=== PATIENT | male | born 1990 | race Caucasian/White ===

== ENCOUNTER 2016-06-16 01:16 | Emergency (ER) | payer MEDICAID, OTHER ==
[~2016-06-16] VITALS: Ht 188 cm; Wt 104.2 kg
[~2016-06-16 01:16] MED LIST: CLON-412 PO; OMEP20CA9 PO
[2016-06-16 01:21] VITALS: Ht 188 cm; Wt 104.2 kg
[2016-06-16] MEDS ORDERED: ELIM TOP (03:29)
[2016-06-16] MEDS ORDERED: HYDR-3011 PO (03:29)
[2016-06-16] MEDS ORDERED: TRAM50TA2 PO (03:29)
[2016-06-16 04:00] VITALS: BP 120/86; PULSE 86; RESP 20; TEMP 98.6
--- NOTE | 2016-06-16 04:29 | ERD ---
ER Documentation Chief Complaint Date/Time DATE: 06/16/16 TIME: 04:25 Chief Complaint rash, back pain and panic attacks HPI 26-year-old male presents here in emergency department for multiple complaints. Patient's complaining of rash all over the body and itching. Patient currently [facility] [place] a [place]. Patient denies any housemates with the same type of symptoms. Patient did not take any medications over the rest. Patient does not have any lip swelling, tongue swelling or stridor. Patient does not have any shortness breath or wheezing. Patient does also here for refill of medication for her panic attacks and chronic back pain. Patient ran out of his medications. Patient denies any recent trauma. Patient has history of chronic back pain. Patient has history of scoliosis. Patient's not verbalizing homicidal or suicidal ideations. Patient is currently in transition with another primary care doctor. ROS All systems reviewed and are negative except as per history of present illness. Medications Home Meds Active Scripts Hydroxyzine Hcl* (Hydroxyzine Hcl*) 25 Mg Tablet, 25 MG PO Q8H Y for ITCHING, # 30 TAB Prov:MARILYNN PARKER NP 06/16/16 Permethrin* (Elimite*) 5% Cr, 1 APPLIC TOP ONCE, #1 TUB apply from neck down, leave on for 8 hrs, rinse off afterwards Prov:MARILYNN PARKER NP 06/16/16 Tramadol HCl (Tramadol HCl) 50 Mg Tablet, 50 MG PO Q6 Y for PAIN, #20 TAB Prov:MARILYNN PARKER NP 06/16/16 Clonazepam* (Klonopin*) 1 Mg Tablet, 2 MG PO TID for 3 Days, TAB Prov:JOYA SERRANO 03/31/16 Omeprazole* (Prilosec*) 20 Mg Capsule., 20 MG PO BID, #14 CAP Prov:ELODIA TATE PA-C 08/24/15 Allergies Allergies: Coded Allergies: aspirin (Verified Allergy, Mild, 08/01/15) cefaclor (Verified Allergy, Mild, 08/01/15) PMhx/Soc History of Surgery: Yes (Pyloric valve repair) Anesthesia Reaction: No Hx Neurological Disorder: No Hx Respiratory Disorders: No Hx Cardiac Disorders: No Hx Psychiatric Problems: Yes (Anxiety and panic disorder) Hx Miscellaneous Medical Probl: Yes (Scoliosis) Hx Alcohol Use: No Hx Substance Use: Yes (THC) Hx Tobacco Use: Yes (THC) Smoking Status: Current every day smoker FmHx Family History: No coronary disease, No diabetes, No other Physical Exam Vitals Vital Signs Date Time Temp Pulse Resp B/P Pulse Ox O2 Delivery O2 Flow Rate FiO2 06/16/16 01:21 98.3 95 16 155/89 98 Physical Exam GENERAL: The patient is well developed and appropriate for usual state of health, in no apparent distress. CHEST: Clear to auscultation bilaterally. There are no rales, wheezes or rhonchi. HEART: Regular rate and rhythm. No murmurs, clicks, rubs or gallops. No S3 or S4. ABDOMEN: Soft, nontender and nondistended. Good bowel sounds. No rebound or guarding. No gross peritonitis. No gross organomegaly or masses. No Nunez sign or McBurney point tenderness. BACK: No midline or flank tenderness. EXTREMITIES: Equal pulses bilaterally. There is no peripheral clubbing, cyanosis or edema. No focal swelling or erythema. Full range of motion. Grossly neurovascularly intact. NEURO: Alert and oriented. Cranial nerves 2-12 intact. Motor strength in all 4 extremities with 5/5 strength. Sensation grossly intact. Normal speech and gait. SKIN: Maculopapular rash noted all over the body, noted burrowing in the bilateral dorsal aspects of the hands. There is no apparent ecchymosis or petechia. The skin is warm and dry. HEMATOLOGIC AND LYMPHATIC: There is no evidence of excessive bruising or lymphedema. No gross cervical, axillary, or inguinal lymphadenopathy. Procedures/MDM Medical decision making: Patient symptoms was likely is consistent with scabies. Considering patient lives in a penitentiary, patient symptoms is consistent with this. There is also burrowing noted. No symptoms of any coagulopathies. No symptoms of anaphylactic shock. No symptoms of urticaria. Patient was given for permethrin, hydroxyzine for this. Patient was also given resources for her to fill prescription for psychiatric medications, and also was given list of community clinics where he can see possibly primary care doctor for consistent care, patient was also advised to see a painter rough. Patient was advised to return to emergency department for any worsening symptoms Departure Diagnosis: Primary Impression: Anxiety Additional Impressions: Scabies Back pain, chronic Back pain location: low back pain Back pain laterality: bilateral Sciatica presence: without sciatica Qualified Code: M54.5 - Chronic bilateral low back pain without sciatica Condition: Stable Patient Instructions: Scabies, Anxiety Reaction, Chronic Pain Referrals: COMMUNITY CLINICS YOU HAVE RECEIVED A MEDICAL SCREENING EXAM AND THE RESULTS INDICATE THAT YOU DO NOT HAVE A CONDITION THAT REQUIRES URGENT TREATMENT IN THE EMERGENCY DEPARTMENT. FURTHER EVALUATION AND TREATMENT OF YOUR CONDITION CAN WAIT UNTIL YOU ARE SEEN IN YOUR DOCTORS OFFICE WITHIN THE NEXT 1-2 DAYS. IT IS YOUR RESPONSIBILITY TO MAKE AN APPOINTMENT FOR FOLOW-UP CARE. IF YOU HAVE A PRIMARY DOCTOR --you should call your primary doctor and schedule an appointment IF YOU DO NOT HAVE A PRIMARY DOCTOR YOU CAN CALL OUR PHYSICIAN REFERRAL HOTLINE AT IF YOU CAN NOT AFFORD TO SEE A PHYSICIAN YOU CAN CHOSE FROM THE FOLLOWING [facility] [address] [facility] [address] [facility] [address] [facility] [address] [facility] [address] [facility] [address] [facility]. [facility] [address] [facility]. [facility] YOU HAVE RECEIVED A MEDICAL SCREENING EXAM AND THE RESULTS INDICATE THAT YOU DO NOT HAVE A CONDITION THAT REQUIRES URGENT TREATMENT IN THE EMERGENCY DEPARTMENT. FURTHER EVALUATION AND TREATMENT OF YOUR CONDITION CAN WAIT UNTIL YOU ARE SEEN IN YOUR DOCTORS OFFICE WITHIN THE NEXT 1-2 DAYS. IT IS YOUR RESPONSIBILITY TO MAKE AN APPOINTMENT FOR FOLOW-UP CARE. IF YOU HAVE A PRIMARY DOCTOR --you should call your primary doctor and schedule and appointment IF YOU DO NOT HAVE A PRIMARY DOCTOR YOU CAN CALL OUR PHYSICIAN REFERRAL HOTLINE AT . IF YOU CAN NOT AFFORD TO SEE A PHYSICIAN YOU CAN CHOSE FROM THE FOLLOWING [facility] INSTITUTIONS: [facility] [address] [place] [address] [facility] [address] [place] [address] [address] MARILYNN PARKER NP Jun 16, 2016 04:29
== END 2016-06-16 04:00 | disposition home or self-care (01) ==
LOC: FTE 01:16
DX: F41.9 Anxiety disorder, unspecified (principal); B86 Scabies; M54.5 Low back pain; F17.210 Nicotine dependence, cigarettes, uncomplicated
CPT/HCPCS: 99284

== ENCOUNTER 2016-08-16 05:40 | Emergency (ER) | payer MEDICAID, OTHER ==
[~2016-08-16] VITALS: Ht 188 cm; Wt 104.0 kg
[~2016-08-16 05:40] MED LIST changes: +ACET325T33 PO; +CARI350T; +CLON2TAB15; +ELIM TOP; +HYDR-3011 PO; +OXYC-281 PO; +OXYC-284; +PARO40TA48; +TRAM50TA2 PO
[2016-08-16 05:44] VITALS: Ht 188 cm; Wt 104.0 kg
[2016-08-16] MEDS ORDERED: ONDA4TAB14 PO (06:13)
[2016-08-16] MEDS ORDERED: DICY10CA60 PO (06:13)
--- NOTE | 2016-08-16 06:16 | ERD ---
ER Documentation Chief Complaint Date/Time DATE: 08/16/16 TIME: 06:14 Chief Complaint right flank pain x 2 days HPI 26-year-old male history of chronic back pain who presents with multiple complaints that include abdominal cramping, loose watery stools a mild nausea for several days. The patient is requesting IV or IM narcotics. He denies any travel, sick contacts, recent antibiotics. ROS All systems reviewed and are negative except as per history of present illness. Medications Home Meds Active Scripts Ondansetron (Ondansetron Odt) 4 Mg Tab.rapdis, 4 MG PO Q6H Y for NAUSEA AND/OR VOMITING, #10 TAB Prov:JULIETA KENNEDY MD 08/16/16 Dicyclomine Hcl* (Bentyl*) 10 Mg Capsule, 10 MG PO QID Y for abdominal cramping , #1 CAP Prov:JULIETA KENNEDY MD 08/16/16 Hydroxyzine Hcl* (Hydroxyzine Hcl*) 25 Mg Tablet, 25 MG PO Q8H Y for ITCHING, # 30 TAB Prov:MARILYNN PARKER NP 06/16/16 Permethrin* (Elimite*) 5% Cr, 1 APPLIC TOP ONCE, #1 TUB apply from neck down, leave on for 8 hrs, rinse off afterwards Prov:MARILYNN PARKER NP 06/16/16 Tramadol HCl (Tramadol HCl) 50 Mg Tablet, 50 MG PO Q6 Y for PAIN, #20 TAB Prov:MARILYNN PARKER NP 06/16/16 Clonazepam* (Klonopin*) 1 Mg Tablet, 2 MG PO TID for 3 Days, TAB Prov:JOYA SERRANO 03/31/16 Omeprazole* (Prilosec*) 20 Mg Capsule., 20 MG PO BID, #14 CAP Prov:ELODIA TATE PA-C 08/24/15 Allergies Allergies: Coded Allergies: aspirin (Verified Allergy, Mild, 08/16/16) cefaclor (Verified Allergy, Mild, 08/16/16) PMhx/Soc History of Surgery: Yes (Pyloric valve repair) Anesthesia Reaction: No Hx Neurological Disorder: No Hx Respiratory Disorders: No Hx Cardiac Disorders: No Hx Psychiatric Problems: Yes (Anxiety and panic disorder) Hx Miscellaneous Medical Probl: Yes (Scoliosis, chronic back pain) Hx Alcohol Use: No Hx Substance Use: Yes (THC) Hx Tobacco Use: Yes (THC) Smoking Status: Current every day smoker Physical Exam Vitals Vital Signs Date Time Temp Pulse Resp B/P Pulse Ox O2 Delivery O2 Flow Rate FiO2 08/16/16 05:44 98.2 89 20 135/92 99 Physical Exam General: Well developed, well nourished, no acute distress Head: Normocephalic, atraumatic. Eyes: Pupils equally reactive, EOM intact ENT: Moist mucous membranes Neck: Supple, no lymphadenopathy Respiratory: Lungs clear bilaterally, no distress Cardiovascular: RRR, no murmurs, rubs, or gallops Abdominal: Soft, non-tender, non-distended, no peritoneal signs, no tenderness to McBurney's point, negative Nunez sign : Deferred MSK: No edema, no unilateral swelling, 5/5 strength Neurologic: Alert and oriented, moving all extremities, normal speech, no focal weakness, no cerebellar signs Skin: No rash Psych: Normal mood Results 24 hrs Current Medications Medications (Trade) Dose Ordered Sig/Ila Route PRN Reason Start Time Stop Time Status Last Admin Dose Admin Acetaminophen/ Hydrocodone Bitart (Tryon (10/325)) 1 tab ONCE ONCE PO 08/16/16 06:30 08/16/16 06:31 Procedures/MDM The patient's low back pain is unlikely related to serious etiology. The patient exhibits no clinical signs or symptoms and has no history or risk factors to suggest cauda equina, cord compression, epidural abscess, epidural hematoma, acute aortic aneurysm or dissection. A combination of electronic medical record review, [facility] database review and patient behavior in the emergency room are concerning for drug-seeking and/or narcotic dependence behavior. In my opinion further use of IV or IM narcotics in this patient is not warranted unless clinical scenario changes. In addition , we should use caution prescribing chronic narcotic and/or benzodiazepine medications from the emergency room. A single provider should be dispensing this type of medication. The patient was informed. The patient continues to request IV and IM narcotics. This is not appropriate. The patient was given a single tablet of Tryon. No prescriptions will be refilled for this patient. He likely has a viral diarrheal illness and will be given Bentyl and Zofran. Benign abdominal exam, no signs of acute intra- abdominal process. The patient will be referred to chronic pain management committee. We discussed follow up with the patient's primary care doctor within 24 to 48 hours as needed. We also discussed return to the emergency room for worsening symptoms or worsening condition. Outpatient referral: [None required] Discharge Medications: Bentcrow, Zofrfederico Departure Diagnosis: Primary Impression: Back pain, chronic Back pain location: back pain in unspecified location Back pain laterality: bilateral Qualified Code: M54.9 - Chronic bilateral back pain, unspecified back location Additional Impressions: Drug-seeking behavior Diarrhea Diarrhea type: unspecified type Qualified Code: R19.7 - Diarrhea, unspecified type Condition: Stable Patient Instructions: Diarrhea, Viral (Child) (Adult) Referrals: [facility] YOU HAVE RECEIVED A MEDICAL SCREENING EXAM AND THE RESULTS INDICATE THAT YOU DO NOT HAVE A CONDITION THAT REQUIRES URGENT TREATMENT IN THE EMERGENCY DEPARTMENT. FURTHER EVALUATION AND TREATMENT OF YOUR CONDITION CAN WAIT UNTIL YOU ARE SEEN IN YOUR DOCTORS OFFICE WITHIN THE NEXT 1-2 DAYS. IT IS YOUR RESPONSIBILITY TO MAKE AN APPOINTMENT FOR FOLOW-UP CARE. IF YOU HAVE A PRIMARY DOCTOR --you should call your primary doctor and schedule an appointment IF YOU DO NOT HAVE A PRIMARY DOCTOR YOU CAN CALL OUR PHYSICIAN REFERRAL HOTLINE AT IF YOU CAN NOT AFFORD TO SEE A PHYSICIAN YOU CAN CHOSE FROM THE FOLLOWING [facility] [address] [facility]. [facility] [address] [facility] [facility] [address] [facility] [address] [facility] [address] [facility]. [facility]. [address] [facility] YOU HAVE RECEIVED A MEDICAL SCREENING EXAM AND THE RESULTS INDICATE THAT YOU DO NOT HAVE A CONDITION THAT REQUIRES URGENT TREATMENT IN THE EMERGENCY DEPARTMENT. FURTHER EVALUATION AND TREATMENT OF YOUR CONDITION CAN WAIT UNTIL YOU ARE SEEN IN YOUR DOCTORS OFFICE WITHIN THE NEXT 1-2 DAYS. IT IS YOUR RESPONSIBILITY TO MAKE AN APPOINTMENT FOR FOLOW-UP CARE. IF YOU HAVE A PRIMARY DOCTOR --you should call your primary doctor and schedule and appointment IF YOU DO NOT HAVE A PRIMARY DOCTOR YOU CAN CALL OUR PHYSICIAN REFERRAL HOTLINE AT . IF YOU CAN NOT AFFORD TO SEE A PHYSICIAN YOU CAN CHOSE FROM THE FOLLOWING [facility] INSTITUTIONS: [facility] [address] [place] [address] [facility] [address] [place] [address] [facility] [address] [place] [address] Additional Instructions: Call your primary care doctor TOMORROW for an appointment during the next 1 WEEK.Tell the area secretary that you were referred from this facility.See the doctor sooner or return here if your condition worsens before your appointment time. JULIETA KENNEDY MD Aug 16, 2016 06:16
[2016-08-16] MEDS ORDERED: HYDROCODONE/APAP (10/325) TAB PO ONE (06:30)
[2016-08-16 06:56] VITALS: BP 143/67; PULSE 65; RESP 16; TEMP 97.6
== END 2016-08-16 06:56 | disposition home or self-care (01) ==
LOC: FTE 05:40
DX: M54.9 Dorsalgia, unspecified (principal); R19.7 Diarrhea, unspecified; R11.0 Nausea; F17.210 Nicotine dependence, cigarettes, uncomplicated; Z72.89 Other problems related to lifestyle
CPT/HCPCS: 99284

== ENCOUNTER 2017-02-01 10:31 | Emergency (ER) | payer OTHER ==
[~2017-02-01] VITALS: Wt 90.0 kg
[~2017-02-01 10:31] MED LIST changes: -ACET325T33 PO; -CARI350T; -CLON2TAB15; +DICY10CA60 PO; +ONDA4TAB14 PO; -OXYC-281 PO; -OXYC-284; -PARO40TA48
[2017-02-01] MEDS ORDERED: ACETAMINOPHEN 500 MG TAB PO STA (12:36)
--- NOTE | 2017-02-01 12:55 | ERD ---
ER Documentation Chief Complaint Date/Time DATE: 02/01/17 TIME: 12:46 Chief Complaint refill of meds HPI This is a 26-year-old male who presents the emergency department today requesting a fill on his pain medication and anxiety meds.. Patient states that he is unable to get in to see an paid search specialist next week as he has a ankle fracture. States that his doctors have recently changed and he is waiting for referral also for pain management. Denies any new trauma, fevers or chills. ROS All systems reviewed and are negative except as per history of present illness. Medications Home Meds Active Scripts Acetaminophen* (Tylophen*) 500 Mg Capsule, 1 CAP PO Q6H Y for PAIN AND OR ELEVATED TEMP, #30 CAP Prov:LUCIA HUNTER PA-C 02/01/17 Ondansetron Hcl* (Zofran*) 4 Mg Tablet, 4 MG PO Q6H for NAUSEA AND/OR VOMITING, #30 TAB Prov:LUCIA HUNTER PA-C 02/01/17 Ondansetron (Ondansetron Odt) 4 Mg Tab.rapdis, 4 MG PO Q6H Y for NAUSEA AND/OR VOMITING, #10 TAB Prov:JULIETA KENNEDY MD 08/16/16 Dicyclomine Hcl* (Bentyl*) 10 Mg Capsule, 10 MG PO QID Y for abdominal cramping , #1 CAP Prov:JULIETA KENNEDY MD 08/16/16 Hydroxyzine Hcl* (Hydroxyzine Hcl*) 25 Mg Tablet, 25 MG PO Q8H Y for ITCHING, # 30 TAB Prov:MARILYNN PARKER NP 06/16/16 Permethrin* (Elimite*) 5% Cr, 1 APPLIC TOP ONCE, #1 TUB apply from neck down, leave on for 8 hrs, rinse off afterwards Prov:MARILYNN PARKER NP 06/16/16 Tramadol HCl (Tramadol HCl) 50 Mg Tablet, 50 MG PO Q6 Y for PAIN, #20 TAB Prov:MARILYNN PARKER NP 06/16/16 Clonazepam* (Klonopin*) 1 Mg Tablet, 2 MG PO TID for 3 Days, TAB Prov:JOYA SERRANO 03/31/16 Omeprazole* (Prilosec*) 20 Mg Capsule., 20 MG PO BID, #14 CAP Prov:ELODIA TATE PA-C 08/24/15 Allergies Allergies: Coded Allergies: aspirin (Verified Allergy, Mild, 08/16/16) cefaclor (Verified Allergy, Mild, 08/16/16) PMhx/Soc History of Surgery: Yes (Pyloric valve repair) Anesthesia Reaction: No Hx Neurological Disorder: No Hx Respiratory Disorders: No Hx Cardiac Disorders: No Hx Psychiatric Problems: Yes (Anxiety and panic disorder) Hx Miscellaneous Medical Probl: Yes (Scoliosis, chronic back pain) Hx Alcohol Use: No Hx Substance Use: Yes (THC) Hx Tobacco Use: Yes (THC) Smoking Status: Current every day smoker Physical Exam Vitals Vital Signs Date Time Temp Pulse Resp B/P Pulse Ox O2 Delivery O2 Flow Rate FiO2 02/01/17 10:34 98.1 92 18 152/83 99 Physical Exam Const: NAD Head: Atraumatic Eyes: Normal Conjunctiva ENT: Normal External Ears, Nose and Mouth. Neck: Full range of motion..~ No meningismus. Resp: Clear to auscultation bilaterally Cardio: Regular rate and rhythm, no murmurs Abd: Soft, non tender, non distended. Normal bowel sounds Skin: No petechiae or rashes Back: No midline or flank tenderness Ext: Right ankle with no obvious deformity. Moderate effusion of right foot and ankle. Mild ecchymosis. Pulses 2+. Distal neurovascularly intact. Neur: Awake and alert Psych: Normal Mood and Affect Results 24 hrs Current Medications Medications (Trade) Dose Ordered Sig/Ila Route PRN Reason Start Time Stop Time Status Last Admin Dose Admin Hydroxyzine HCl (Atarax) 25 mg ONCE ONCE PO 02/01/17 13:00 02/01/17 13:01 DC 02/01/17 13:31 Acetaminophen (Tylenol Tab) 500 mg ONCE STAT PO 02/01/17 12:36 02/01/17 12:39 DC 02/01/17 13:30 Ondansetron HCl (Zofran Odt) 4 mg ONCE STAT ODT 02/01/17 13:17 02/01/17 13:18 DC 02/01/17 13:30 Ketorolac Tromethamine (Toradol) 30 mg ONCE STAT IM 02/01/17 13:18 02/01/17 13:20 DC 02/01/17 13:36 Procedures/MDM This is a 26-year-old male presents emergency department today requesting pain medication and anxiety medication refills. Upon review of patient's medical records and TOMY and АННА report patient has had 72 visits to local emergency departments in the past year for mostly pain related complaints. Patient had a chronic pain care plan updated on October 13, [address] Woody. He has multiple narcotic prescriptions for Percocet and [place] and Klonopin from multiple providers filled at multiple pharmacies. Today on physical exam patient did have evidence of some swelling and ecchymosis over the lateral aspect of his ankle. He was in a walking boot. Patient was requesting narcotic medication stating that he was out of his medication. He was also requesting benzodiazepines. Recommendations of patient's care plan was to give the patient Tylenol or Motrin here in the emergency department without prescriptions for narcotics for home. Patient did not have x-ray results with him and I offered to repeat x-rays for him and he declined at this time. I also offered patient a new walking boot and crutches and he declined those as well. I discussed the patient with Dr. Herrera who recommended that the patient be given Toradol, Tylenol here in the emergency department. Patient was also given Zofran as he was complaining that the pain was causing him to be nauseated. At some point had reported he was allergic to aspirin however on further questioning patient denied this. He was therefore given Toradol and he stated he had been given this in the past with no allergic reaction. He was also given hydroxyzine to help with his pain and complaints of anxiety. Patient was in no acute distress. He had no evidence of benzodiazepine withdrawal. 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 Patient did bring paperwork with him that stated that. Several calls were made on behalf of the patient by nursing staff to pain management physicians that accepted the patient's insurance and several calls were made to the patient's insurance provider to get authorization for the patient to be seen by pain management doctor tomorrow, Dr. Latonya Mario in [place]. Patient was instructed to go to the appointment. He was given an address and a map to get to the appointment. Patient symptoms at this time is consistent with ankle injury and chronic pain. Patient was discharged home with a prescription for Tylenol and Zofran. At this time the patient is stable for discharge and outpatient management. Patient should follow up with their PCP in the next 1-2 days. They may return to the emergency department sooner for any persistent or worsening of symptoms. Patient understood and agreed with the plan. Departure Diagnosis: Primary Impression: Encounter for medication refill Additional Impression: Pain Condition: Fair LUCIA HUNTER PA-C Feb 01, 2017 12:55
[2017-02-01] MEDS ORDERED: hydrOXYzine HCL 25 MG TAB PO ONE (13:00)
[2017-02-01] MEDS ORDERED: ONDANSETRON (ODT) 4 MG TAB ODT STA (13:17)
[2017-02-01] MEDS ORDERED: KETOROLAC 30 MG INJ IM STA (13:18)
[2017-02-01] MEDS ORDERED: ACET500C5 PO (13:32)
[2017-02-01] MEDS ORDERED: ONDA4TAB8 PO (13:32)
== END 2017-02-01 13:49 | disposition home or self-care (01) ==
LOC: FTE 10:31
DX: S99.911A Unspecified injury of right ankle, initial encounter (principal); G89.29 Other chronic pain; F17.210 Nicotine dependence, cigarettes, uncomplicated; X58.XXXA Exposure to other specified factors, initial encounter; Y92.9 Unspecified place or not applicable; Z76.0 Encounter for issue of repeat prescription
CPT/HCPCS: 96372; J1885; Z7502; Z7610

== ENCOUNTER → 2017-06-03 | Emergency (ER) | END | disposition home or self-care (01) ==

== ENCOUNTER 2017-06-28 11:10 | Emergency (ER) | END 2017-06-28 14:50 | disposition home or self-care (01) ==

== ENCOUNTER 2017-08-10 12:38 | Emergency (ER) | END 2017-08-10 16:14 | disposition home or self-care (01) ==

== ENCOUNTER 2017-09-03 14:50 | Emergency (ER) | END 2017-09-03 15:45 | disposition home or self-care (01) ==

== ENCOUNTER 2017-10-08 20:31 | Emergency (ER) | END 2017-10-08 22:37 | disposition home or self-care (01) ==

== ENCOUNTER 2017-11-19 18:04 | Emergency (ER) | END 2017-11-19 20:15 | disposition home or self-care (01) ==

== ENCOUNTER 2018-01-16 18:17 | Emergency (ER) | END 2018-01-16 20:58 | disposition home or self-care (01) ==

== ENCOUNTER 2018-02-01 17:40 | Emergency (ER) | END 2018-02-01 19:36 | disposition home or self-care (01) ==

== ENCOUNTER 2018-02-28 16:10 | Emergency (ER) | END 2018-02-28 17:53 | disposition home or self-care (01) ==

== ENCOUNTER 2018-04-15 15:50 | Emergency (ER) | END 2018-04-15 18:26 | disposition home or self-care (01) ==

== ENCOUNTER 2018-05-03 16:42 | Emergency (ER) | payer OTHER ==
[~2018-05-03] VITALS: Ht 185.4 cm; Wt 110.0 kg
[~2018-05-03 16:42] MED LIST changes: +ACET500C5 PO; +CLIN300C10 PO; +CLON2TAB12 PO; +CYCL10TA7 PO; +DICY10CA40 PO; -DICY10CA60 PO; -HYDR-3011 PO; +HYDR-843 PO; +HYDR50TA15 PO; +IBUP-1542 PO; +NAPR-985 PO; +ONDA4TAB8 PO; +OXYC-279 PO
[2018-05-03 16:46] VITALS: BP 160/94; PULSE 88; RESP 14; Ht 185.4 cm; Wt 110.0 kg
[2018-05-03] MEDS ORDERED: CLON-412 PO (17:25)
--- NOTE | 2018-05-03 17:50 | ERD ---
ER Documentation Chief Complaint Chief Complaint MED REFILL; "RAN OUT OF KLONOPIN" HPI 27-year-old male presenting for medication refill. Patient states that he ran out of Klonopin. Patient states he takes 2 mg 3 times daily. Denies any suicidal homicidal ideations. States he takes Klonopin for his panic disorder. He does not have a primary care psychiatrist. Patient denies any medical problems. Is allergic to Ceclor. Surgical history denies. Social history denies ROS All systems reviewed and are negative except as per history of present illness. Medications Home Meds Active Scripts Clonazepam* (Klonopin*) 1 Mg Tablet, 1 MG PO BID, #5 TAB Prov:JORDYN WELDON PA-C 05/03/18 Hydroxyzine Hcl* (Hydroxyzine Hcl*) 50 Mg Tablet, 50 MG PO TID PRN for ANXIETY, #10 TAB Prov:ADOLFO GODINEZ MD 02/28/18 Hydroxyzine Hcl* (Hydroxyzine Hcl*) 25 Mg Tablet, 25 MG PO TID, #30 TAB Prov:ADOLFO GODINEZ MD 11/19/17 Acetaminophen* (Tylophen*) 500 Mg Capsule, 1 CAP PO Q6H PRN for PAIN AND OR ELEVATED TEMP, #20 CAP Prov:JAX BOLANOS PA-C 10/08/17 Clindamycin Hcl* (Clindamycin Hcl*) 300 Mg Capsule, 300 MG PO TID for 7 Days, CAP Prov:JAX BOLANOS PA-C 10/08/17 Naproxen* (Naprosyn*) 500 Mg Tablet, 500 MG PO BID PRN for PAIN AND/OR INFLAMMATION, #30 TAB Prov:JORDYN WELDON PA-C 09/03/17 Oxycodone HCl/Acetaminophen (Percocet 5-325 mg Tablet) 1 Each Tablet, 1 EACH PO DAILY, #3 TAB Prov:JORDYN WELDON PA-C 09/03/17 Clonazepam* (Clonazepam*) 2 Mg Tablet, 2 MG PO BID, #3 TAB Prov:JORDYN WELDON PA-C 09/03/17 Cyclobenzaprine Hcl* (Cyclobenzaprine Hcl*) 10 Mg Tablet, 10 MG PO TID, #15 TAB Prov:JOYA SERRANO 08/10/17 Ibuprofen* (Motrin*) 600 Mg Tab, 600 MG PO Q6, #30 TAB Prov:JOYA SERRANO 08/10/17 Clonazepam* (Klonopin*) 1 Mg Tablet, 1 MG PO BID for 2 Days, TAB Prov:ALFONSO NO PA-C 06/28/17 Acetaminophen* (Tylophen*) 500 Mg Capsule, 1 CAP PO Q6H PRN for PAIN AND OR ELEV ATED TEMP, #30 CAP Prov:LUCIA HUNTER PA-C 02/01/17 Ondansetron Hcl* (Zofran*) 4 Mg Tablet, 4 MG PO Q6H for NAUSEA AND/OR VOMITING, #30 TAB Prov:LUCIA HUNTER PA-C 02/01/17 Ondansetron (Ondansetron Odt) 4 Mg Tab.rapdis, 4 MG PO Q6H PRN for NAUSEA AND/OR VOMITING, #10 TAB Prov:JULIETA KENNEDY MD 08/16/16 Dicyclomine HCl (Dicyclomine HCl) 10 Mg Capsule, 10 MG PO QID PRN for abdominal cramping, #1 CAP Prov:JULIETA KENNEDY MD 08/16/16 Hydroxyzine Hcl* (Hydroxyzine Hcl*) 25 Mg Tablet, 25 MG PO Q8H PRN for ITCHING, #30 TAB Prov:MARILYNN PARKER NP 06/16/16 Permethrin* (Elimite*) 5% Cr, 1 APPLIC TOP ONCE, #1 TUB apply from neck down, leave on for 8 hrs, rinse off afterwards Prov:MARILYNN PARKER NP 06/16/16 Tramadol HCl (Tramadol HCl) 50 Mg Tablet, 50 MG PO Q6 PRN for PAIN, #20 TAB Prov:MARILYNN PARKER NP 06/16/16 Clonazepam* (Klonopin*) 1 Mg Tablet, 2 MG PO TID for 3 Days, TAB Prov:JOYA SERRANO 03/31/16 Omeprazole* (Prilosec*) 20 Mg Capsule.dr, 20 MG PO BID, #14 CAP Prov:ELODIA TATE PA-C 08/24/15 Allergies Allergies: Coded Allergies: aspirin (Verified Allergy, Mild, 08/16/16) cefaclor (Verified Allergy, Mild, 08/16/16) PMhx/Soc History of Surgery: Yes (Pyloric valve repair) Anesthesia Reaction: No Hx Neurological Disorder: No Hx Respiratory Disorders: No Hx Cardiac Disorders: Yes (HTN) Hx Psychiatric Problems: Yes (Anxiety and panic disorder) Hx Miscellaneous Medical Probl: Yes (Scoliosis, chronic back pain) Hx Alcohol Use: No Hx Substance Use: Yes (THC) Hx Tobacco Use: No FmHx Family History: No diabetes, No coronary disease, No other Physical Exam Vitals Vital Signs Date Temp Pulse Resp B/P (MAP) Pulse Ox O2 O2 Flow FiO2 Time Delivery Rate 05/03/18 98.5 88 14 160/94 99 16:46 (116) Physical Exam GENERAL: The patient is well-appearing, well-nourished, in no acute distress HEENT: Atraumatic. Conjunctivae are pink. Pupils equal, round, and reactive to light. There is no scleral icterus. Tympanic membranes clear bilaterally. Oropharynx clear. NECK: C-spine is soft and supple. There is no meningismus. There is no cervical lymphadenopathy. CHEST: Clear to auscultation bilaterally. There are no rales, wheezes or rhonchi. HEART: Regular rate and rhythm. No murmurs, clicks, rubs or gallops. No S3 or S4. ABDOMEN:Soft, nontender and nondistended. Good bowel sounds. No rebound or guarding. No gross peritonitis. No gross organomegaly or masses. No Nunez sign or McBurney point tenderness. Procedures/MDM MDM: 27-year-old male presenting for medication refill. Patient is here chronically so I will discharge patient with outpatient resources as he needs to have primary care and psychiatry consultations. I will give patient medication however told patient he would receive no more than 5 pills of 1 mg. Patient is discharged with supportive medications. Departure Diagnosis: Primary Impression: Encounter for medication refill Additional Impression: Anxiety Condition: Stable Patient Instructions: Anxiety Reaction Referrals: [facility] YOU HAVE RECEIVED A MEDICAL SCREENING EXAM AND THE RESULTS INDICATE THAT YOU DO NOT HAVE A CONDITION THAT REQUIRES URGENT TREATMENT IN THE EMERGENCY DEPARTMENT. FURTHER EVALUATION AND TREATMENT OF YOUR CONDITION CAN WAIT UNTIL YOU ARE SEEN IN YOUR DOCTORS OFFICE WITHIN THE NEXT 1-2 DAYS. IT IS YOUR RESPONSIBILITY TO MAKE AN APPOINTMENT FOR FOLOW-UP CARE. IF YOU HAVE A PRIMARY DOCTOR --you should call your primary doctor and schedule an appointment IF YOU DO NOT HAVE A PRIMARY DOCTOR YOU CAN CALL OUR PHYSICIAN REFERRAL HOTLINE AT IF YOU CAN NOT AFFORD TO SEE A PHYSICIAN YOU CAN CHOSE FROM THE FOLLOWING COUNTS INCLUDE 234 BEDS AT THE [facility] CL[facility]ICS [facility] [address] [facility] [address] [facility]. [facility] [address] [facility] [address] [facility] [address] [facility]. [facility] [address] Additional Instructions: FOLLOW UP WITH YOUR PRIMARY CARE PHYSICIAN TOMORROW.Return to this facility if you are not improving as expected. JORDYN WELDON PA-C May 03, 2018 17:49
== END 2018-05-03 18:48 | disposition home or self-care (01) ==
LOC: FTE 16:42
DX: F41.9 Anxiety disorder, unspecified (principal); I10 Essential (primary) hypertension
CPT/HCPCS: 99281

== ENCOUNTER 2018-07-20 17:12 | Emergency (ER) | payer MEDICAID ==
[~2018-07-20] VITALS: Ht 175.3 cm; Wt 113.5 kg
[2018-07-20 18:08] VITALS: BP 143/74; PULSE 66; RESP 20; Ht 175.3 cm; Wt 113.5 kg
--- NOTE | 2018-07-20 21:37 | ERD ---
ER Documentation Chief Complaint Chief Complaint Complains of weakness and bilateral leg pain x 3 days HPI Patient is a 28-year-old male with chronic pain who presents for pain medicine. He says "I am having a lot of pain". He said that he is off his Percocet. He does not of a pain management doctor currently. Upon review of old medical records the patient has multiple visits to the ER for similar complaints. Review of the emergency department information exchange system shows 408 visits to multiple emergency departments over the past 1 year. He does have a care plan. ROS All systems reviewed and are negative except as per history of present illness. Medications Home Meds Active Scripts Clonazepam* (Klonopin*) 1 Mg Tablet, 1 MG PO BID, #5 TAB Prov:JORDYN WELDON PA-C 05/03/18 Hydroxyzine Hcl* (Hydroxyzine Hcl*) 50 Mg Tablet, 50 MG PO TID PRN for ANXIETY, #10 TAB Prov:ADOLFO GODINEZ MD 02/28/18 Hydroxyzine Hcl* (Hydroxyzine Hcl*) 25 Mg Tablet, 25 MG PO TID, #30 TAB Prov:ADOLFO GODINEZ MD 11/19/17 Acetaminophen* (Tylophen*) 500 Mg Capsule, 1 CAP PO Q6H PRN for PAIN AND OR ELEVATED TEMP, #20 CAP Prov:JAX BOLANOS PA-C 10/08/17 Clindamycin Hcl* (Clindamycin Hcl*) 300 Mg Capsule, 300 MG PO TID for 7 Days, CAP Prov:JAX BOLANOS PA-C 10/08/17 Naproxen* (Naprosyn*) 500 Mg Tablet, 500 MG PO BID PRN for PAIN AND/OR INFLAMMATION, #30 TAB Prov:JORDYN WELDON PA-C 09/03/17 Oxycodone HCl/Acetaminophen (Percocet 5-325 mg Tablet) 1 Each Tablet, 1 EACH PO DAILY, #3 TAB Prov:JORDYN WELDON PA-C 09/03/17 Clonazepam* (Clonazepam*) 2 Mg Tablet, 2 MG PO BID, #3 TAB Prov:JORDYN WELDON PA-C 09/03/17 Cyclobenzaprine Hcl* (Cyclobenzaprine Hcl*) 10 Mg Tablet, 10 MG PO TID, #15 TAB Prov:MAGGIESCOTTJOYA C 08/10/17 Ibuprofen* (Motrin*) 600 Mg Tab, 600 MG PO Q6, #30 TAB Prov:SCOTT SERRANOMIRELA Quijano 08/10/17 Clonazepam* (Klonopin*) 1 Mg Tablet, 1 MG PO BID for 2 Days, TAB Prov:ALFONSO NO-C 06/28/17 Acetaminophen* (Tylophen*) 500 Mg Capsule, 1 CAP PO Q6H PRN for PAIN AND OR ELEVATED TEMP, #30 CAP Prov:LUCIA HUNTER-C 02/01/17 Ondansetron Hcl* (Zofran*) 4 Mg Tablet, 4 MG PO Q6H for NAUSEA AND/OR VOMITING, #30 TAB Prov:LUCIA HUNTERC 02/01/17 Ondansetron (Ondansetron Odt) 4 Mg Tab.rapdis, 4 MG PO Q6H PRN for NAUSEA AND/OR VOMITING, #10 TAB Prov:JULIETA KENNEDY MD 08/16/16 Dicyclomine HCl (Dicyclomine HCl) 10 Mg Capsule, 10 MG PO QID PRN for abdominal cramping, #1 CAP Prov:JULIETA EKNNEDY MD 08/16/16 Hydroxyzine Hcl* (Hydroxyzine Hcl*) 25 Mg Tablet, 25 MG PO Q8H PRN for ITCHING, #30 TAB Prov:MARILYNN PARKER NP 06/16/16 Permethrin* (Elimite*) 5% Cr, 1 APPLIC TOP ONCE, #1 TUB apply from neck down, leave on for 8 hrs, rinse off afterwards Prov:MARILYNN PARKER NP 06/16/16 Tramadol HCl (Tramadol HCl) 50 Mg Tablet, 50 MG PO Q6 PRN for PAIN, #20 TAB Prov:MARILYNN PARKER NP 06/16/16 Clonazepam* (Klonopin*) 1 Mg Tablet, 2 MG PO TID for 3 Days, TAB Prov:JOYA SERRANO 03/31/16 Omeprazole* (Prilosec*) 20 Mg Capsule.dr, 20 MG PO BID, #14 CAP Prov:ELODIA TATEVicki BA 08/24/15 Allergies Allergies: Coded Allergies: aspirin (Verified Allergy, Mild, 08/16/16) cefaclor (Verified Allergy, Mild, 08/16/16) PMhx/Soc History of Surgery: Yes (Pyloric valve repair) Anesthesia Reaction: No Hx Neurological Disorder: No Hx Respiratory Disorders: No Hx Cardiac Disorders: Yes (HTN) Hx Psychiatric Problems: Yes (Anxiety and panic disorder) Hx Miscellaneous Medical Probl: Yes (Scoliosis, chronic back pain) Hx Alcohol Use: No Hx Substance Use: Yes (THC) Hx Tobacco Use: No Smoking Status: Never smoker FmHx Family History: No diabetes Physical Exam Vitals Vital Signs Date Temp Pulse Resp B/P (MAP) Pulse Ox O2 O2 Flow FiO2 Time Delivery Rate 07/20/18 98.0 66 20 143/74 98 18:08 (97) Physical Exam Const: No acute distress Head: Atraumatic Eyes: Normal Conjunctiva ENT: Normal External Ears, Nose and Mouth. Neck: Full range of motion. No meningismus. Resp: Clear to auscultation bilaterally Cardio: Regular rate and rhythm, no murmurs Abd: Soft, non tender, non distended. Normal bowel sounds Skin: No petechiae or rashes Back: No midline or flank tenderness Ext: No cyanosis, or edema Neur: Awake and alert Psych: Depressed affect Procedures/MDM Patient is a 28-year-old male who presents with chronic pain. I will not give him any pain medicines and I told him he will not get pain medicines in the future. The patient will need to follow-up with a pain management doctor and I will give him information for Dr. Mars. He was Wilmer seen in another emergency department today and has frequent visits to multiple emergency departments. He is averaging more than 1 visit per day daily over the past 1 year to different emergency departments. He can return for any worsening symptoms. Departure Diagnosis: Primary Impression: Chronic pain Chronic pain type: chronic pain syndrome Qualified Codes: G89.4 - Chronic pain syndrome Additional Impression: Drug-seeking behavior Condition: Fair Patient Instructions: Chronic Pain Referrals: DAVID MARS MD Additional Instructions: SPECIALIST: YOU HAVE A MEDICAL CONDITION WHICH REQUIRES YOU TO SEE A SPECIALIST WITHIN THE NEXT 1-2 DAYS. PLEASE FOLLOW UP WITH YOUR PRIMARY PHYSICIAN FOR REFFERAL.IF YOU DO NOT HAVE A PRIMARY CARE PHYSICIAN AND/OR YOU CAN NOT AFFORD TO SEE A PHYSICIAN THE FOLLOWING RESOURCES HAVE BEEN SUPPLIED TO YOU. IT IS YOUR RESPONSIBILITY TO BE SEEN BY THE SPECIALIST CESIA SMITH MD Jul 20, 2018 21:37
== END 2018-07-20 18:32 | disposition home or self-care (01) ==
LOC: E/R 17:12
DX: G89.4 Chronic pain syndrome (principal); I10 Essential (primary) hypertension; Z72.89 Other problems related to lifestyle
CPT/HCPCS: 99282

== ENCOUNTER 2018-07-25 15:52 | Emergency (ER) | payer MEDICAID, OTHER ==
[~2018-07-25] VITALS: Ht 188 cm; Wt 113.1 kg
[2018-07-25 15:57] VITALS: BP 119/58; PULSE 84; RESP 17; Ht 188 cm; Wt 113.1 kg
--- NOTE | 2018-07-25 17:08 | ERD ---
ER Documentation Chief Complaint Chief Complaint LOWER BACK PAIN RADIATING TO BILATERAL LEGS, WITHDRAWL SYMPTOMS HPI Patient is a 28-year-old male with a past medical history of chronic pain including chronic back pain, anxiety, depression, who presents the ER requesting medication refill of his Percocet. Patient states he ran out 2 days ago. Patient states he is having "a lot of pain". Patient states pain is radiating down his bilateral legs. Patient denies any saddle anesthesia, urine incontinence or stool incontinence. Patient denies fevers or chills. Patient denies any falls or trauma. Patient states he does not have a pain management doctor at this time. Review of patient's medical records show that patient has been seen in the ER for similar complaints in the past. Patient was just seen here on 07-20-18 for similar concerns and told he will not be given any additional medication refills for narcotic medications at this facility. Patient denies suicidal ideations or homocidal ideations. ROS All systems reviewed and are negative except as per history of present illness. Medications Home Meds Active Scripts Clonazepam* (Klonopin*) 1 Mg Tablet, 1 MG PO BID, #5 TAB Prov:JORDYN WELDON PA-C 05/03/18 Hydroxyzine Hcl* (Hydroxyzine Hcl*) 50 Mg Tablet, 50 MG PO TID PRN for ANXIETY, #10 TAB Prov:ADOLFO GODINEZ MD 02/28/18 Hydroxyzine Hcl* (Hydroxyzine Hcl*) 25 Mg Tablet, 25 MG PO TID, #30 TAB Prov:ADOLFO GODINEZ MD 11/19/17 Acetaminophen* (Tylophen*) 500 Mg Capsule, 1 CAP PO Q6H PRN for PAIN AND OR ELEVATED TEMP, #20 CAP Prov:JAX BOLANOS PA-C 10/08/17 Clindamycin Hcl* (Clindamycin Hcl*) 300 Mg Capsule, 300 MG PO TID for 7 Days, CAP Prov:JAX BOLANOS PA-C 10/08/17 Naproxen* (Naprosyn*) 500 Mg Tablet, 500 MG PO BID PRN for PAIN AND/OR INFLAMMATION, #30 TAB Prov:JORDYN WELDON PA-C 09/03/17 Oxycodone HCl/Acetaminophen (Percocet 5-325 mg Tablet) 1 Each Tablet, 1 EACH PO DAILY, #3 TAB Prov:JORDYN WELDON PA-C 09/03/17 Clonazepam* (Clonazepam*) 2 Mg Tablet, 2 MG PO BID, #3 TAB Prov:JORDYN WELDON PA-C 09/03/17 Cyclobenzaprine Hcl* (Cyclobenzaprine Hcl*) 10 Mg Tablet, 10 MG PO TID, #15 TAB Prov:JOYA SERRANO 08/10/17 Ibuprofen* (Motrin*) 600 Mg Tab, 600 MG PO Q6, #30 TAB Prov:JOYA SERRANO 08/10/17 Clonazepam* (Klonopin*) 1 Mg Tablet, 1 MG PO BID for 2 Days, TAB Prov:ALFONSO NO PA-C 06/28/17 Acetaminophen* (Tylophen*) 500 Mg Capsule, 1 CAP PO Q6H PRN for PAIN AND OR ELEVATED TEMP, #30 CAP Prov:LUCIA HUNTER PA-C 02/01/17 Ondansetron Hcl* (Zofran*) 4 Mg Tablet, 4 MG PO Q6H for NAUSEA AND/OR VOMITING, #30 TAB Prov:LUCIA HUNTER PA-C 02/01/17 Ondansetron (Ondansetron Odt) 4 Mg Tab.rapdis, 4 MG PO Q6H PRN for NAUSEA AND/OR VOMITING, #10 TAB Prov:JULIETA KENNEDY MD 08/16/16 Dicyclomine HCl (Dicyclomine HCl) 10 Mg Capsule, 10 MG PO QID PRN for abdominal cramping, #1 CAP Prov:JULIETA KENNEDY MD 08/16/16 Hydroxyzine Hcl* (Hydroxyzine Hcl*) 25 Mg Tablet, 25 MG PO Q8H PRN for ITCHING, #30 TAB Prov:MARILYNN PARKER NP 06/16/16 Permethrin* (Elimite*) 5% Cr, 1 APPLIC TOP ONCE, #1 TUB apply from neck down, leave on for 8 hrs, rinse off afterwards Prov:MARILYNN PARKER NP 06/16/16 Tramadol HCl (Tramadol HCl) 50 Mg Tablet, 50 MG PO Q6 PRN for PAIN, #20 TAB Prov:LORAMARILYNN NGUYEN HINA TheronVicki LAUREN 06/16/16 Clonazepam* (Klonopin*) 1 Mg Tablet, 2 MG PO TID for 3 Days, TAB Prov:JOYA SERRANO 03/31/16 Omeprazole* (Prilosec*) 20 Mg Capsule.dr, 20 MG PO BID, #14 CAP Prov:ELODIA TATE PA-C 08/24/15 Allergies Allergies: Coded Allergies: aspirin (Verified Allergy, Mild, 08/16/16) cefaclor (Verified Allergy, Mild, 08/16/16) PMhx/Soc History of Surgery: Yes (Pyloric valve repair) Anesthesia Reaction: No Hx Neurological Disorder: No Hx Respiratory Disorders: No Hx Cardiac Disorders: Yes (HTN) Hx Psychiatric Problems: Yes (Anxiety and panic disorder) Hx Miscellaneous Medical Probl: Yes (Scoliosis, chronic back pain) Hx Alcohol Use: No Hx Substance Use: Yes (THC) Hx Tobacco Use: No Smoking Status: Never smoker FmHx Family History: No diabetes Physical Exam Vitals Vital Signs Date Temp Pulse Resp B/P (MAP) Pulse Ox O2 O2 Flow FiO2 Time Delivery Rate 07/25/18 98.6 84 17 119/58 99 15:57 (78) Physical Exam GENERAL: Well-developed, well-nourished male. Appears in no acute distress. HEAD: Normocephalic, atraumatic. EYES: Pupils are equally reactive bilaterally. EOMs grossly intact. No conjunctival erythema. ENT: Moist mucous membranes. No uvula deviation. No kissing tonsils. NECK: Supple. No meningismus. Normal range of motion of the neck. LUNG: Clear to auscultation bilaterally. No rhonchi, wheezing, rales or coarse breath sounds. HEART: Regular rate and rhythm. No murmurs, rubs or gallops. BACK: No midline tenderness. EXTREMITIES: Equal pulses bilaterally. No peripheral clubbing, cyanosis or edema. No unilateral leg swelling. NEUROLOGIC: Alert and oriented. Moving all four extremities without any diff iculty. Normal speech. Steady gait. SKIN: Normal color. Warm and dry. No rashes or lesions. PSYCH: Depressed affect. Denies suicidal ideation. Denied homicidal ideations. Procedures/MDM MEDICAL DECISION MAKING: Patient is a 28-year-old male who presents the ER requesting refill of his Percocet. Patient has a history of chronic back pain.. Vital signs were reviewed. Patient is afebrile. Patient was not hypoxic. Patient was hemodynamically stable. Patient does have a АННА report which shows that patient has had over 384 visits to the emergency department, many of them on the same day. Patient was offered ibuprofen and Tylenol here in the ER however he declined. Patient states he has his medicines at home. Per [facility] report, patient did receive 20 tabs of Percocet on 07-22-18. Patient was advised he will not receive any narcotic pain medications at this time and he should follow-up with a auto customize painter. Referral information was provided to the patient. Patient denied suicidal ideations or homocidal ideations. Patient was advised to return the ER for any new or worsening symptoms. DISCHARGE: At this time, patient is stable for discharge and outpatient management. I have instructed the patient to follow-up with his/her primary care physician in 1-2 days. I have discussed with the patient the possibility of needing to see a specialist for further workup and imaging studies if symptoms persist. I have instructed the patient to promptly return to the ER for any new or worsening symptoms including increased pain, fever, nausea, vomiting, weakness or LOC. The patient and/or family expressed understanding of and agreement with this plan. All questions were answered. Home care instructions were provided. Disclaimer: Inadvertent spelling and grammatical errors are likely due to EHR/dictation software use and do not reflect on the overall quality of patient care. Also, please note that the electronic time recorded on this note does not necessarily reflect the actual time of the patient encounter. Departure Diagnosis: Primary Impression: Drug-seeking behavior Additional Impression: Chronic pain Chronic pain type: other chronic pain Qualified Codes: G89.29 - Other chronic pain Condition: Fair Patient Instructions: Understanding Chronic Pain Referrals: DAVID PHAN MD, ANTHONY Jr., MD VALLE,JAMAL Arteaga MD PENDING SALE TO [facility] YOU HAVE RECEIVED A MEDICAL SCREENING EXAM AND THE RESULTS INDICATE THAT YOU DO NOT HAVE A CONDITION THAT REQUIRES URGENT TREATMENT IN THE EMERGENCY DEPARTMENT. FURTHER EVALUATION AND TREATMENT OF YOUR CONDITION CAN WAIT UNTIL YOU ARE SEEN IN YOUR DOCTORS OFFICE WITHIN THE NEXT 1-2 DAYS. IT IS YOUR RESPONSIBILITY TO MAKE AN APPOINTMENT FOR FOLOW-UP CARE. IF YOU HAVE A PRIMARY DOCTOR --you should call your primary doctor and schedule an appointment IF YOU DO NOT HAVE A PRIMARY DOCTOR YOU CAN CALL OUR PHYSICIAN REFERRAL HOTLINE AT IF YOU CAN NOT AFFORD TO SEE A PHYSICIAN YOU CAN CHOSE FROM THE FOLLOWING [facility] [address] [facility] [address] [facility] [address] [facility] [address] [facility] [address] [facility]. [facility] [address] [facility]. [facility] YOU HAVE RECEIVED A MEDICAL SCREENING EXAM AND THE RESULTS INDICATE THAT YOU DO NOT HAVE A CONDITION THAT REQUIRES URGENT TREATMENT IN THE EMERGENCY DEPARTMENT. FURTHER EVALUATION AND TREATMENT OF YOUR CONDITION CAN WAIT UNTIL YOU ARE SEEN IN YOUR DOCTORS OFFICE WITHIN THE NEXT 1-2 DAYS. IT IS YOUR RESPONSIBILITY TO MAKE AN APPOINTMENT FOR FOLOW-UP CARE. IF YOU HAVE A PRIMARY DOCTOR --you should call your primary doctor and schedule and appointment IF YOU DO NOT HAVE A PRIMARY DOCTOR YOU CAN CALL OUR PHYSICIAN REFERRAL HOTLINE AT . IF YOU CAN NOT AFFORD TO SEE A PHYSICIAN YOU CAN CHOSE FROM THE FOLLOWING [facility]: [facility] [address] [place] [address] [facility] [address] [place] [address] [facility] [address] [place] [address] Additional Instructions: Follow up with your pain medication doctor. Call your primary care doctor TOMORROW for an appointment during the next 1-2 days.See the doctor sooner or return here if your condition worsens before your appointment time. FLACO SWEENEY PA-C Jul 25, 2018 17:08
== END 2018-07-25 17:10 | disposition home or self-care (01) ==
LOC: FTE 15:52
DX: G89.29 Other chronic pain (principal); I10 Essential (primary) hypertension; Z72.89 Other problems related to lifestyle
CPT/HCPCS: 99282

== ENCOUNTER 2018-08-14 23:53 | Emergency (ER) | payer SELFPAY ==
[~2018-08-14] VITALS: Ht 188 cm; Wt 115.0 kg
[2018-08-14 23:59] VITALS: Ht 188 cm; Wt 115.0 kg
[2018-08-15] MEDS ORDERED: KETOROLAC 60 MG INJ IM STA (01:11)
--- NOTE | 2018-08-15 01:15 | ERD ---
ER Documentation Chief Complaint Chief Complaint RIGHT LEG PAIN X 1 WEEK HPI 28-year-old male is here with flareup of chronic pain in his lower back and bilateral lower extremities. He is requesting narcotic pain medications. He is known to the emergency room for this. No new injury or trauma. ROS All systems reviewed and are negative except as per history of present illness. Medications Home Meds Active Scripts Clonazepam* (Klonopin*) 1 Mg Tablet, 1 MG PO BID, #5 TAB Prov:JORDYN WELDON PA-C 05/03/18 Hydroxyzine Hcl* (Hydroxyzine Hcl*) 50 Mg Tablet, 50 MG PO TID PRN for ANXIETY, #10 TAB Prov:ADOLFO GODINEZ MD 02/28/18 Hydroxyzine Hcl* (Hydroxyzine Hcl*) 25 Mg Tablet, 25 MG PO TID, #30 TAB Prov:ADOLFO GODINEZ MD 11/19/17 Acetaminophen* (Tylophen*) 500 Mg Capsule, 1 CAP PO Q6H PRN for PAIN AND OR BHARATI VATED TEMP, #20 CAP Prov:JAX BOLANOS PA-C 10/08/17 Clindamycin Hcl* (Clindamycin Hcl*) 300 Mg Capsule, 300 MG PO TID for 7 Days, CAP Prov:JAX BOLANOS PA-C 10/08/17 Naproxen* (Naprosyn*) 500 Mg Tablet, 500 MG PO BID PRN for PAIN AND/OR INFLAMMATION, #30 TAB Prov:JORDYN WELDON PA-C 09/03/17 Oxycodone HCl/Acetaminophen (Percocet 5-325 mg Tablet) 1 Each Tablet, 1 EACH PO DAILY, #3 TAB Prov:JORDYN WELDON PA-C 09/03/17 Clonazepam* (Clonazepam*) 2 Mg Tablet, 2 MG PO BID, #3 TAB Prov:JORDYN WELDON PA-C 09/03/17 Cyclobenzaprine Hcl* (Cyclobenzaprine Hcl*) 10 Mg Tablet, 10 MG PO TID, #15 TAB Prov:JOYA SERRANO 08/10/17 Ibuprofen* (Motrin*) 600 Mg Tab, 600 MG PO Q6, #30 TAB Prov:MAGGIEJOYA SINGLETON 08/10/17 Clonazepam* (Klonopin*) 1 Mg Tablet, 1 MG PO BID for 2 Days, TAB Prov:ALFONSO NO PA-C 06/28/17 Acetaminophen* (Tylophen*) 500 Mg Capsule, 1 CAP PO Q6H PRN for PAIN AND OR ELEVATED TEMP, #30 CAP Prov:LUCIA HUNTER PA-C 02/01/17 Ondansetron Hcl* (Zofran*) 4 Mg Tablet, 4 MG PO Q6H for NAUSEA AND/OR VOMITING, #30 TAB Prov:LUCIA HUNTER PA-C 02/01/17 Ondansetron (Ondansetron Odt) 4 Mg Tab.rapdis, 4 MG PO Q6H PRN for NAUSEA AND/OR VOMITING, #10 TAB Prov:JULIETA KENNEDY MD 08/16/16 Dicyclomine HCl (Dicyclomine HCl) 10 Mg Capsule, 10 MG PO QID PRN for abdominal cramping, #1 CAP Prov:JULIETA KENNEDY MD 08/16/16 Hydroxyzine Hcl* (Hydroxyzine Hcl*) 25 Mg Tablet, 25 MG PO Q8H PRN for ITCHING, #30 TAB Prov:MARILYNN PARKER NP 06/16/16 Permethrin* (Elimite*) 5% Cr, 1 APPLIC TOP ONCE, #1 TUB apply from neck down, leave on for 8 hrs, rinse off afterwards Prov:MARILYNN PARKER NP 06/16/16 Tramadol HCl (Tramadol HCl) 50 Mg Tablet, 50 MG PO Q6 PRN for PAIN, #20 TAB Prov:MARILYNN PARKER NP 06/16/16 Clonazepam* (Klonopin*) 1 Mg Tablet, 2 MG PO TID for 3 Days, TAB Prov:JOYA SERRANO 03/31/16 Omeprazole* (Prilosec*) 20 Mg Capsule.dr, 20 MG PO BID, #14 CAP Prov:ELODIA TATE PA-C 08/24/15 Allergies Allergies: Coded Allergies: aspirin (Verified Allergy, Mild, 08/16/16) cefaclor (Verified Allergy, Mild, 08/16/16) PMhx/Soc History of Surgery: Yes (Pyloric valve repair) Anesthesia Reaction: No Hx Neurological Disorder: No Hx Respiratory Disorders: No Hx Cardiac Disorders: Yes (HTN) Hx Psychiatric Problems: Yes (Anxiety and panic disorder) Hx Miscellaneous Medical Probl: Yes (Scoliosis, chronic back pain) Hx Alcohol Use: No Hx Substance Use: Yes (THC) Hx Tobacco Use: No FmHx Family History: No diabetes Physical Exam Vitals Vital Signs Date Temp Pulse Resp B/P (MAP) Pulse Ox O2 O2 Flow FiO2 Time Delivery Rate 08/14/18 97.5 98 20 134/66 99 23:59 (88) Physical Exam Const: No acute distress Head: Atraumatic Neck: Full range of motion. No meningismus. Resp: Clear to auscultation bilaterally Cardio: Regular rate and rhythm, no murmurs Skin: No petechiae or rashes Back: No midline or flank tenderness Ext: No cyanosis, or edema Neur: Awake and alert Psych: Normal Mood and Affect Results 24 hrs Current Medications Medications Dose Sig/Ila Start Time Status Last (Trade) Ordered Route PRN Stop Time Admin Dose Reason Admin Ketorolac 60 mg ONCE STAT 08/15/18 DC Tromethamine IM 01:11 (Toradol) 08/15/18 01:12 Procedures/MDM This patient is here with drug-seeking behavior and chronic pain. He has a care plan and I explained to him that I would not be giving him any narcotic pain medications. I offered her Toradol which she accepted. Patient counseled regarding my diagnostic impression and care plan. Prior to discharge all questions answered. Pt agrees with treatment plan and understands strict return precautions. Pt is instructed to follow up with primary care provider within 24- 48 hours. Precautionary instructions provided including instructions to return to the ER if not improving or for any worsening or changing symptoms or concerns. Departure Diagnosis: Primary Impression: Chronic pain Condition: Stable Patient Instructions: Chronic Pain Additional Instructions: Call your primary care doctor TOMORROW for an appointment during the next 1-2 days.See the doctor sooner or return here if your condition worsens before your appointment time. ARTIE BEATTY PA-C Aug 15, 2018 01:15
[2018-08-15 01:30] VITALS: BP 110/61; PULSE 79; RESP 20
== END 2018-08-15 01:44 | disposition home or self-care (01) ==
LOC: FTE 23:53
DX: M79.604 Pain in right leg (principal); I10 Essential (primary) hypertension
CPT/HCPCS: 96372; 99284; J1885

== ENCOUNTER 2018-08-25 14:07 | Emergency (ER) | payer MEDICAID ==
[2018-08-25] MEDS ORDERED: KETOROLAC 30 MG INJ IM STA (17:09)
--- NOTE | 2018-08-25 17:29 | ERD ---
ER Documentation Chief Complaint Chief Complaint HPI 28-year-old male with no reported past medical history, documented medical history of drug-seeking behavior with multiple ER visits (documented 384 АННА conducted ED visits from April 2017 to April 2018, 58 visits to 7 different emergency departments) who presents with complaint of lower back pain right leg pain. MSE consistent with chronic pain syndrome. Patient offered Tylenol, Mot rin, single dose of Toradol. Patient agreed to single dose of Toradol. He otherwise denies lower extremity paresthesias or weakness, urinary or bowel incontinence. Denies chest pain, shortness of breath, dyspnea, nausea, vomiting, diarrhea, abdominal pain. Time examination patient in no acute distress. ROS All systems reviewed and are negative except as per history of present illness. Medications Home Meds Active Scripts Clonazepam* (Klonopin*) 1 Mg Tablet, 1 MG PO BID, #5 TAB Prov:JORDYN WELDON PA-C 05/03/18 Hydroxyzine Hcl* (Hydroxyzine Hcl*) 50 Mg Tablet, 50 MG PO TID PRN for ANXIETY, #10 TAB Prov:ADOLFO GODINEZ MD 02/28/18 Hydroxyzine Hcl* (Hydroxyzine Hcl*) 25 Mg Tablet, 25 MG PO TID, #30 TAB Prov:ADOLFO GODINEZ MD 11/19/17 Acetaminophen* (Tylophen*) 500 Mg Capsule, 1 CAP PO Q6H PRN for PAIN AND OR ELEVATED TEMP, #20 CAP Prov:JAX BOLANOS PA-C 10/08/17 Clindamycin Hcl* (Clindamycin Hcl*) 300 Mg Capsule, 300 MG PO TID for 7 Days, CAP Prov:JAX BOLANOS PA-C 10/08/17 Naproxen* (Naprosyn*) 500 Mg Tablet, 500 MG PO BID PRN for PAIN AND/OR INFLAMMATION, #30 TAB Prov:JORDYN WELDON PA-C 09/03/17 Oxycodone HCl/Acetaminophen (Percocet 5-325 mg Tablet) 1 Each Tablet, 1 EACH PO DAILY, #3 TAB Prov:JORDYN WELDON PA-C 09/03/17 Clonazepam* (Clonazepam*) 2 Mg Tablet, 2 MG PO BID, #3 TAB Prov:JORDYN WELDON PA-C 09/03/17 Cyclobenzaprine Hcl* (Cyclobenzaprine Hcl*) 10 Mg Tablet, 10 MG PO TID, #15 TAB Prov:JOYA SERRANO 08/10/17 Ibuprofen* (Motrin*) 600 Mg Tab, 600 MG PO Q6, #30 TAB Prov:JOYA SERRANO 08/10/17 Clonazepam* (Klonopin*) 1 Mg Tablet, 1 MG PO BID for 2 Days, TAB Prov:ALFONSO NO PA-C 06/28/17 Acetaminophen* (Tylophen*) 500 Mg Capsule, 1 CAP PO Q6H PRN for PAIN AND OR ELEVATED TEMP, #30 CAP Prov:LUCIA HUNTER PA-C 02/01/17 Ondansetron Hcl* (Zofran*) 4 Mg Tablet, 4 MG PO Q6H for NAUSEA AND/OR VOMITING, #30 TAB Prov:LUCIA HUNTER PA-C 02/01/17 Ondansetron (Ondansetron Odt) 4 Mg Tab.rapdis, 4 MG PO Q6H PRN for NAUSEA AND/OR VOMITING, #10 TAB Prov:JULIETA KENNEDY MD 08/16/16 Dicyclomine HCl (Dicyclomine HCl) 10 Mg Capsule, 10 MG PO QID PRN for abdominal cramping, #1 CAP Prov:JULIETA KENNEDY MD 08/16/16 Hydroxyzine Hcl* (Hydroxyzine Hcl*) 25 Mg Tablet, 25 MG PO Q8H PRN for ITCHING, #30 TAB Prov:MARILYNN PARKER NP 06/16/16 Permethrin* (Elimite*) 5% Cr, 1 APPLIC TOP ONCE, #1 TUB apply from neck down, leave on for 8 hrs, rinse off afterwards Prov:MARILYNN PARKER NP 06/16/16 Tramadol HCl (Tramadol HCl) 50 Mg Tablet, 50 MG PO Q6 PRN for PAIN, #20 TAB Prov:MARILYNN PARKER NP 06/16/16 Clonazepam* (Klonopin*) 1 Mg Tablet, 2 MG PO TID for 3 Days, TAB Prov:JOYA SERRANO 03/31/16 Omeprazole* (Prilosec*) 20 Mg Capsule., 20 MG PO BID, #14 CAP Prov:ELODIA TATE Quique BA 08/24/15 Allergies Allergies: Coded Allergies: aspirin (Verified Allergy, Mild, 08/16/16) cefaclor (Verified Allergy, Mild, 08/16/16) PMhx/Soc History of Surgery: Yes (Pyloric valve repair) Anesthesia Reaction: No Hx Neurological Disorder: No Hx Respiratory Disorders: No Hx Cardiac Disorders: Yes (HTN) Hx Psychiatric Problems: Yes (Anxiety and panic disorder) Hx Miscellaneous Medical Probl: Yes (Scoliosis, chronic back pain) Hx Alcohol Use: No Hx Substance Use: Yes (THC) Hx Tobacco Use: No FmHx Family History: No diabetes, No coronary disease, No other Physical Exam Physical Exam Const: No acute distress Head: Atraumatic Eyes: Normal Conjunctiva ENT: Normal External Ears, Nose and Mouth. Neck: Full range of motion. No meningismus. Resp: Clear to auscultation bilaterally Cardio: Regular rate and rhythm, no murmurs Abd: Soft, non tender, non distended. Normal bowel sounds Skin: No petechiae or rashes Back: No midline or flank tenderness Ext: No cyanosis, or edema Neur: Awake and alert Psych: Normal Mood and Affect Results 24 hrs Current Medications Medications Dose Sig/Ila Start Time Status Last (Trade) Ordered Route PRN Stop Time Admin Dose Reason Admin Ketorolac 30 mg ONCE STAT 08/25/18 DC Tromethamine IM 17:09 08/25/18 (Toradol) 17:10 Procedures/MDM 28-year-old male with documented medical history of drug-seeking behavior with multiple ER visits (documented 384 АННА conducted ED visits from April 2017 to April 2018, 58 visits to 7 different emergency departments) resents with comp laint of back pain and leg pain. I have low suspicion for acute emergency requiring any emergent evaluation or care. Patient denies any red flag symptoms. I discussed the patient's recurrent pain issues with him. This is the 59th time he has been evaluated in the emergency department for pain-related issues in the last year or so. I emphasized that my training was in the treatment of acute pain, that his physical exam here is quite reassuring, and that definitive treatment of chronic pain is not the role of the emergency department. I compassionately explained to patient that I felt providing opiate medications from the emergency department was counterproductive in that this may cause or exacerbate tolerance, acute overdose, physiological or psychological dependence, or withdrawal. We discussed that opiate use in the management of chronic pain is best managed by a single practitioner, such as a primary care provider or a pain specialist. We discussed adjunctive therapies such as heat, ice, and exercise, as well as non-opiate medications. I reiterated to patient that the most effective management of his chronic pain involves a multimodal approach coordinated by his primary care provider and often includes physical therapy, cognitive behavioral therapy, and referrals to practitioners such as anesthesiologists trained in chronic pain management. DISPOSITION PLAN: We discussed follow up with the patient's primary care doctor within 24 to 48 hours. Patient counseled regarding my diagnostic impression and care plan. Prior to discharge all questions answered. Pt agrees with treatment plan and understands strict return precautions. Precautionary instructions provided including instructions to return to the ER if not improving or for any worsening or changing symptoms or concerns. Disclaimer: Inadvertent spelling and grammatical errors are likely due to EHR/dictation software use and do not reflect on the overall quality of patient care. Also, please note that the electronic time recorded on this note does not necessarily reflect the actual time of the patient encounter. Departure Diagnosis: Primary Impression: Back pain Additional Impression: Drug-seeking behavior Condition: Stable Patient Instructions: Back Pain (Acute Or Chronic) Referrals: COMM[facility] YOU HAVE RECEIVED A MEDICAL SCREENING EXAM AND THE RESULTS INDICATE THAT YOU DO NOT HAVE A CONDITION THAT REQUIRES URGENT TREATMENT IN THE EMERGENCY DEPARTMENT. FURTHER EVALUATION AND TREATMENT OF YOUR CONDITION CAN WAIT UNTIL YOU ARE SEEN IN YOUR DOCTORS OFFICE WITHIN THE NEXT 1-2 DAYS. IT IS YOUR RESPONSIBILITY TO MAKE AN APPOINTMENT FOR FOLOW-UP CARE. IF YOU HAVE A PRIMARY DOCTOR --you should call your primary doctor and schedule an appointment IF YOU DO NOT HAVE A PRIMARY DOCTOR YOU CAN CALL OUR PHYSICIAN REFERRAL HOTLINE AT IF YOU CAN NOT AFFORD TO SEE A PHYSICIAN YOU CAN CHOSE FROM THE FOLLOWING [facility] CLINICS [facility] [address] [facility] [address] [facility] [address] [facility] [address] [facility]. [facility] [address] [facility]. [facility]. [address] Additional Instructions: Call your primary care doctor TOMORROW for an appointment during the next 2-3 days.See the doctor sooner or return here if your condition worsens before your appointment time. MICHAEL GARCIA PA-C August 25, 2018 17:24
== END 2018-08-25 17:36 | disposition home or self-care (01) ==
LOC: FTE 14:07
DX: M54.5 Low back pain (principal); I10 Essential (primary) hypertension; Z72.89 Other problems related to lifestyle
CPT/HCPCS: 96372; J1885; Z7502

== ENCOUNTER 2018-09-06 15:00 | Emergency (ER) | payer SELFPAY | END 2018-09-06 17:04 | disposition left against medical advice (07) | LOC: E/R 15:00 | DX: Z53.21 Procedure and treatment not carried out due to patient leaving prior to being seen by health care provider (principal) ==

== ENCOUNTER 2018-09-16 21:27 | Emergency (ER) | payer MEDICAID ==
[~2018-09-16] VITALS: Ht 188 cm; Wt 108.0 kg
[2018-09-16 21:29] VITALS: Ht 188 cm; Wt 108.0 kg
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
[2018-09-16 22:27] VITALS: BP 145/88; PULSE 78; RESP 20
== END 2018-09-16 22:27 | disposition home or self-care (01) ==
LOC: E/R 21:27
DX: F41.1 Generalized anxiety disorder (principal); G89.29 Other chronic pain; I10 Essential (primary) hypertension
CPT/HCPCS: 99282

== ENCOUNTER 2018-10-13 14:40 | Emergency (ER) | payer MEDICAID ==
[~2018-10-13] VITALS: Ht 188 cm; Wt 109.9 kg
[2018-10-13 14:49] VITALS: BP 126/71; PULSE 59; RESP 16; Ht 188 cm; Wt 109.9 kg
[2018-10-13] MEDS ORDERED: clonAZEPAM 0.5 MG TAB PO ONE (16:00)
[2018-10-13] MEDS ORDERED: CLON-412 PO (16:27)
--- NOTE | 2018-10-13 16:28 | ERD ---
ER Documentation Chief Complaint Chief Complaint ENCOUNTER FOR REFILL OF KLONIPIN ROS All systems reviewed and are negative except as per history of present illness. Medications Home Meds Active Scripts Clonazepam* (Klonopin*) 1 Mg Tablet, 1 MG PO BID PRN for ANXIETY, #10 TAB Prov:XIMENA PARHAM DO 10/13/18 Clonazepam* (Klonopin*) 1 Mg Tablet, 1 MG PO BID, #5 TAB Prov:JORDYN WELDON PA-C 05/03/18 Hydroxyzine Hcl* (Hydroxyzine Hcl*) 50 Mg Tablet, 50 MG PO TID PRN for ANXIETY, #10 TAB Prov:ADOLFO GODINEZ MD 02/28/18 Hydroxyzine Hcl* (Hydroxyzine Hcl*) 25 Mg Tablet, 25 MG PO TID, #30 TAB Prov:ADOLFO GODINEZ MD 11/19/17 Acetaminophen* (Tylophen*) 500 Mg Capsule, 1 CAP PO Q6H PRN for PAIN AND OR ELEVATED TEMP, #20 CAP Prov:JAX BOLANOS PA-C 10/08/17 Clindamycin Hcl* (Clindamycin Hcl*) 300 Mg Capsule, 300 MG PO TID for 7 Days, CAP Prov:JAX BOLANOS PA-C 10/08/17 Naproxen* (Naprosyn*) 500 Mg Tablet, 500 MG PO BID PRN for PAIN AND/OR INFLAMMATION, #30 TAB Prov:JORDYN WELDON PA-C 09/03/17 Oxycodone HCl/Acetaminophen (Percocet 5-325 mg Tablet) 1 Each Tablet, 1 EACH PO DAILY, #3 TAB Prov:JORDYN WELDON PA-C 09/03/17 Clonazepam* (Clonazepam*) 2 Mg Tablet, 2 MG PO BID, #3 TAB Prov:JORDYN WELDON PA-C 09/03/17 Cyclobenzaprine Hcl* (Cyclobenzaprine Hcl*) 10 Mg Tablet, 10 MG PO TID, #15 TAB Prov:JOYA SERRANO 08/10/17 Ibuprofen* (Motrin*) 600 Mg Tab, 600 MG PO Q6, #30 TAB Prov:JOYA SERRANO 08/10/17 Clonazepam* (Klonopin*) 1 Mg Tablet, 1 MG PO BID for 2 Days, TAB Prov:ALFONSO ON PA-C 06/28/17 Acetaminophen* (Tylophen*) 500 Mg Capsule, 1 CAP PO Q6H PRN for PAIN AND OR ELEVATED TEMP, #30 CAP Prov:LUCIA HUNTER PA-C 02/01/17 Ondansetron Hcl* (Zofran*) 4 Mg Tablet, 4 MG PO Q6H for NAUSEA AND/OR VOMITING, #30 TAB Prov:LUCIA HUNTER PA-C 02/01/17 Ondansetron (Ondansetron Odt) 4 Mg Tab.rapdis, 4 MG PO Q6H PRN for NAUSEA AND/OR VOMITING, #10 TAB Prov:JULIETA KENNEDY MD 08/16/16 Dicyclomine HCl (Dicyclomine HCl) 10 Mg Capsule, 10 MG PO QID PRN for abdominal cramping, #1 CAP Prov:JULIETA KENNEDY MD 08/16/16 Hydroxyzine Hcl* (Hydroxyzine Hcl*) 25 Mg Tablet, 25 MG PO Q8H PRN for ITCHING, #30 TAB Prov:MARILYNN PARKER NP 06/16/16 Permethrin* (Elimite*) 5% Cr, 1 APPLIC TOP ONCE, #1 TUB apply from neck down, leave on for 8 hrs, rinse off afterwards Prov:MARILYNN PARKER NP 06/16/16 Tramadol HCl (Tramadol HCl) 50 Mg Tablet, 50 MG PO Q6 PRN for PAIN, #20 TAB Prov:MARILYNN PARKER [employer] 06/16/16 Clonazepam* (Klonopin*) 1 Mg Tablet, 2 MG PO TID for 3 Days, TAB Prov:JOYA SERRANO 03/31/16 Omeprazole* (Prilosec*) 20 Mg Capsule.dr, 20 MG PO BID, #14 CAP Prov:ELODIA TATE PA-C 08/24/15 Allergies Allergies: Coded Allergies: aspirin (Verified Allergy, Mild, 08/16/16) cefaclor (Verified Allergy, Mild, 08/16/16) PMhx/Soc History of Surgery: Yes (Pyloric valve repair) Anesthesia Reaction: No Hx Neurological Disorder: No Hx Respiratory Disorders: No Hx Cardiac Disorders: Yes (HTN) Hx Psychiatric Problems: Yes (Anxiety and panic disorder) Hx Miscellaneous Medical Probl: Yes (Scoliosis, chronic back pain) Hx Alcohol Use: No Hx Substance Use: Yes (THC) Hx Tobacco Use: No Smoking Status: Current every day smoker Physical Exam Vitals Vital Signs Date Temp Pulse Resp B/P (MAP) Pulse Ox O2 O2 Flow FiO2 Time Delivery Rate 10/13/18 98.5 59 16 126/71 100 14:49 (89) Physical Exam Const: No acute distress Head: Atraumatic Eyes: Normal Conjunctiva ENT: Normal External Ears, Nose and Mouth. Neck: Full range of motion. No meningismus. Resp: Clear to auscultation bilaterally Cardio: Regular rate and rhythm, no murmurs Abd: Soft, non tender, non distended. Normal bowel sounds Skin: No petechiae or rashes Back: No midline or flank tenderness Ext: No cyanosis, or edema Neur: Awake and alert Psych: Normal Mood and Affect Results 24 hrs Current Medications Medications Dose Sig/Ila Start Time Status Last (Trade) Ordered Route PRN Stop Time Admin Dose Reason Admin Clonazepam 0.5 mg ONCE ONCE 10/13/18 DC 10/13/18 (Klonopin) PO 16:00 16:07 10/13/18 16:01 Departure Diagnosis: Primary Impression: Encounter for medication refill Condition: Fair Patient Instructions: Taking Medicine Safely Referrals: [facility] YOU HAVE RECEIVED A MEDICAL SCREENING EXAM AND THE RESULTS INDICATE THAT YOU DO NOT HAVE A CONDITION THAT REQUIRES URGENT TREATMENT IN THE EMERGENCY DEPARTMENT. FURTHER EVALUATION AND TREATMENT OF YOUR CONDITION CAN WAIT UNTIL YOU ARE SEEN IN YOUR DOCTORS OFFICE WITHIN THE NEXT 1-2 DAYS. IT IS YOUR RESPONSIBILITY TO MAKE AN APPOINTMENT FOR FOLOW-UP CARE. IF YOU HAVE A PRIMARY DOCTOR --you should call your primary doctor and schedule an appointment IF YOU DO NOT HAVE A PRIMARY DOCTOR YOU CAN CALL OUR PHYSICIAN REFERRAL HOTLINE AT IF YOU CAN NOT AFFORD TO SEE A PHYSICIAN YOU CAN CHOSE FROM THE FOLLOWING [facility] CL[facility]ICS [facility] [address] [facility]. [facility] [address] [facility]. [facility] [address] [facility] [address] [facility] [address] [facility]. [facility] [address] Additional Instructions: Call your primary care doctor TOMORROW for an appointment during the next 1-2 days.See the doctor sooner or return here if your condition worsens before your appointment time. XIMENA PARHAM DO Oct 13, 2018 16:28
== END 2018-10-13 16:34 | disposition home or self-care (01) ==
LOC: FTE 14:40
DX: I10 Essential (primary) hypertension (principal); F17.210 Nicotine dependence, cigarettes, uncomplicated
CPT/HCPCS: Z7502; Z7610; 99281